=== PATIENT | male | born 1975 | race African-American/Black ===

== ENCOUNTER 2023-04-16 08:21 | Emergency (ER) | payer MEDICAID, OTHER ==
[~2023-04-16] VITALS: Ht 180.3 cm; Wt 85.0 kg
[2023-04-16 08:22] VITALS: O2SAT 100
[2023-04-16] MEDS ORDERED: KETOROLAC 60MG/2ML VIAL IM ONE (09:30)
[2023-04-16] MEDS ORDERED: POLY119P3 PO ×3 (11:20→11:21)
[2023-04-16] MEDS ORDERED: IBUP-2030 MT (11:21)
[2023-04-16 11:40] VITALS: BP 132/78; PULSE 77; RESP 16; TEMP 98
== END 2023-04-16 11:41 | disposition home or self-care (01) ==
LOC: ER 08:45
DX: S31.139A Puncture wound of abdominal wall without foreign body, unspecified quadrant without penetration into peritoneal cavity, initial encounter (principal); K59.00 Constipation, unspecified; R10.9 Unspecified abdominal pain; F12.10 Cannabis abuse, uncomplicated; W34.09XA Accidental discharge from other specified firearms, initial encounter; Y93.89 Activity, other specified; Y92.89 Other specified places as the place of occurrence of the external cause; Y99.8 Other external cause status
CPT/HCPCS: 99283; 74022; 96372; J1885